=== PATIENT | female | born 1940 | race Caucasian/White ===

== ENCOUNTER 2016-06-28 06:10 | Day surgery (SDC) | payer MEDICARE, OTHER ==
[~2016-06-28] VITALS: Ht 152.4 cm; Wt 73.5 kg
[~2016-06-28 06:10] MED LIST: ALEN70TA5 PO; AMLO5TAB2 PO; ASPI-515 PO; ATOR40TA78 PO; CHOL4POW3 PO; CLOP75TA PO; ESCI20TA PO; HYDR12.53 PO; IBAN150T PO; ISOS30TA8 PO; L-THYROXINE PO; LEVO100T5 PO; LISI-167 PO; MAGN400T7 PO; METO25TA35 PO; NITR0.4T8 SL; NITR1PAT26 TD; NITROGLYCERIN PO; OXYB10TA PO; OXYB5TAB7 PO; PANT40TA3 PO; PARO20TA4 PO; PRAV40TA2 PO; QUIN20TA7 PO; RANO500T2 PO; SUCR1TAB26 PO; TICA90TA PO; TIOT18CA INH; UMEC62.5 INH; VANC1VIA3 PO; VERA240C2 PO
[2016-06-28 07:05] VITALS: BP 117/55
[2016-06-28] MEDS ORDERED: PANT40TA3 PO (07:11)
[2016-06-28] MEDS ORDERED: ASPI-496 PO (07:11)
[2016-06-28] MEDS ORDERED: LIDOCAINE 2%, 20ML ONE (07:22)
[2016-06-28] MEDS ORDERED: PROTAMINE SULFATE 10 MG/ML, 25ML ONE (07:29)
[2016-06-28] MEDS ORDERED: HEPARIN 1,000 UNITS/ML, 10ML ONE (07:30)
[2016-06-28] MEDS ORDERED: MIDAZOLAM 1 MG/ML, 5ML ONE (07:30)
[2016-06-28] MEDS ORDERED: NITROGLYCERIN 5 MG/ML, 10ML ONE (07:30)
[2016-06-28] MEDS ORDERED: FENTANYL PF 100 MCG/2ML ONE (07:30)
[2016-06-28] MEDS ORDERED: FLUMAZENIL 0.1 MG/1 ML, 5ML ONE (07:30)
[2016-06-28] MEDS ORDERED: NALOXONE 1 MG/ML, 2ML ONE (07:30)
[2016-06-28] MEDS ORDERED: VISIPAQUE 320 MG/ML, 150ML BOTTLE ONE (08:00)
[2016-06-28] MEDS ORDERED: CLOPIDOGREL 300 MG TABLET PO ONE (09:30)
[2016-06-28] MEDS ORDERED: CLOPIDOGREL 75 MG TABLET ONE (09:33)
== END 2016-06-28 11:20 | disposition home or self-care (01) ==
LOC: OUT 06:10
PROVIDERS: ATTEND Surgery Vascular Surgery
DX: I70.211 Atherosclerosis of native arteries of extremities with intermittent claudication, right leg (principal); I10 Essential (primary) hypertension; I25.2 Old myocardial infarction; Z87.891 Personal history of nicotine dependence; Z95.5 Presence of coronary angioplasty implant and graft
CPT/HCPCS: 37225; 75625; 75716; C1714; C1725; C1751; C1760; C1769; C1884; C1894; C2623; J1644; J2250; J3010; J3490; Q9967; 75630; 99156; 99157; J2720; J2310

== ENCOUNTER → 2016-08-07 | Outpatient (CLI) | payer MEDICARE, OTHER ==
[~2016-08-07] MED LIST changes: +ASPI-496 PO
== END | disposition home or self-care (01) ==
LOC: CVU 12:12
PROVIDERS: ATTEND Internal Medicine Cardiovascular Disease
DX: I65.29 Occlusion and stenosis of unspecified carotid artery (principal)
CPT/HCPCS: 93880

== ENCOUNTER → 2018-06-26 | Outpatient (CLI) | payer MEDICARE, OTHER ==
[~2018-06-26] MED LIST changes: -ALEN70TA5 PO; +ALEN70TA6 PO; +AMLO-150 PO; -AMLO5TAB2 PO; +HYDR12.517 PO; -HYDR12.53 PO; -IBAN150T PO; +IBAN150T15 PO; +NITR0.4T28 SL; -NITR0.4T8 SL; +QUIN20TA17 PO; -QUIN20TA7 PO; -SUCR1TAB26 PO; +SUCR1TAB33 PO
== END | disposition home or self-care (01) ==
LOC: CVU 08:48
PROVIDERS: ATTEND Surgery Vascular Surgery
DX: I70.90 Unspecified atherosclerosis (principal); J44.9 Chronic obstructive pulmonary disease, unspecified; I25.10 Atherosclerotic heart disease of native coronary artery without angina pectoris
CPT/HCPCS: 93922; 93925

== ENCOUNTER 2018-09-02 21:26 | Inpatient (IN) | payer MEDICARE, OTHER ==
[~2018-09-02] VITALS: Ht 152.4 cm; Wt 72.9 kg
--- NOTE | 2018-09-02 21:43 | NUR ---
PT TO ED FOR MGLF APPROX 1 HOUR AGO. PT REPORTS PAIN TO LEFT SHOULDER AND LEFT HIP. HEMATOMA TO LEFT LOWER LIP. PT CONNECTED TO MONITORS. VSS. EDMD PRESENT FOR ASSESSMENT. AWAITING ORDERS.
[2018-09-02] MEDS ORDERED: ONDANSETRON 2MG/ML, 2ML IVPush ONE (22:00)
[2018-09-02] MEDS ORDERED: MORPHINE SULFATE 4 MG/ML, 1ML ONE ×2 (22:01→23:06)
[2018-09-02] MEDS ORDERED: ONDANSETRON 2MG/ML, 2ML ONE (22:01)
[2018-09-02 22:18] LABS: BASOPHILS # (AUTO) 0.04 x10^3/uL (0-0.1); BASOPHILS % (AUTO) 0 % (0-1); EOSINOPHILS # (AUTO) 0.21 x10^3/uL (0-0.4); EOSINOPHILS % (AUTO) 2 % (1-7); LYMPHOCYTES # (AUTO) 3.57 x10^3/uL (1-3.4); LYMPHOCYTES % (AUTO) 37 % (22-44); MD NO; MEAN CORPUSCULAR HEMOGLOBIN 34.3 pg (27.0-34.8); MEAN PLATELET VOLUME 7.5 fL (7.4-10.4); MONOCYTES # (AUTO) 0.66 x10^3/uL (0.2-0.8); MONOCYTES % (AUTO) 7 % (2-9); NEUTROPHILS # (AUTO) 5.24 x10^3/uL (1.8-6.8); NEUTROPHILS % (AUTO) 54 % (42-75); PLATELET COUNT 255 x10^3/uL (130-400); RED BLOOD COUNT 3.66 x10^6/uL (3.82-5.3); RED CELL DISTRIBUTION WIDTH 13.5 % (9.6-15.2)
[2018-09-02 22:21] LABS: INTERNATIONAL NORMALIZED RATIO 1.02 (0.93-1.1); PROTHROMBIN TIME 10.7 Seconds (9.6-11.5)
[2018-09-02 22:25] LABS: ALANINE AMINOTRANSFERASE 29 U/L (12-78); ALBUMIN 3.6 g/dL (3.4-5.0); ANION GAP 9 mmol/L (5-15); CALCIUM 8.8 mg/dL (8.5-10.1); CHLORIDE 112 mmol/L (98-107); CREATININE 1.06 mg/dL (0.55-1.02)
[2018-09-02 22:29] LABS: ALKALINE PHOSPHATASE 95 U/L (45-117); BILIRUBIN,TOTAL 0.4 mg/dL (0.2-1.0); TOTAL PROTEIN 7.9 g/dL (6.4-8.2); TROPONIN I < 0.015 ng/mL (0.000-0.045)
--- NOTE | 2018-09-02 22:31 | NUR ---
PT GIVEN A DOSE OF MORPHINE TO HELP WITH PAIN. PT IS REPORTING NO IMRPOVEMENT AT THIS TIME. PT RESTING IN BED. AWAITNG FURTHER ORDERS.
[2018-09-02] MEDS: MORPHINE SULFATE 4 MG/ML, 1ML IVPush PRN ×2 (22:36→23:12)
[2018-09-02] MEDS ORDERED: HYDROmorphone 2 MG/ML, 1ML ONE (23:52)
--- NOTE | 2018-09-02 23:58 | NUR ---
RECEIVED REPORT FROM EDNA HENLEY TO ASSUME PT. CARE.
[2018-09-03] MEDS ORDERED: HYDROmorphone 2 MG/ML, 1ML IVPush PRN
[2018-09-03] MEDS ORDERED: HYDROmorphone 1 MG/ML, 1ML INJ IVPush PRN
--- NOTE | 2018-09-03 00:04 | NUR ---
PT MEDICATED FOR PAIN. REPORT TO COLTEN BISHOP. PT ON O2 TO PREVENT HYPOXIA
--- NOTE | 2018-09-03 00:24 | NUR ---
REPORT TO EDNA AVELAR. FLOOR READY FOR PT. TRANSPORT. EDTA AT BS TO PLACE SHOULDER IMMOBILIZER PER ORDER.
[2018-09-03] MEDS ORDERED: L-Thyroxine PO (01:13)
[2018-09-03] MEDS ORDERED: NITR0.6T4 SL (01:13)
[2018-09-03] MEDS ORDERED: METO25TA4 PO (01:13)
[2018-09-03 01:14] VITALS: BP 152/67
[2018-09-03] MEDS ORDERED: MELATONIN 5 MG TABLET ONE (01:50)
[2018-09-03] MEDS ORDERED: MELATONIN 5 MG TABLET PO PRN (02:00)
[2018-09-03] MEDS ORDERED: hydrALAzine 20 MG/ML, 1ML IVPush PRN (04:00)
[2018-09-03] MEDS ORDERED: PROMETHAZINE 25 MG/ML, 1ML IM PRN (04:00)
[2018-09-03] MEDS ORDERED: POLYETHYLENE GLYCOL 17 GM PACKET PO PRN (04:00)
[2018-09-03] MEDS ORDERED: DOCUSATE 100 MG CAPSULE PO PRN (04:00)
[2018-09-03] MEDS ORDERED: ONDANSETRON ODT 4 MG PO PRN (04:00)
[2018-09-03] MEDS ORDERED: NITROGLYCERIN 0.4 MG BOTTLE (25 TABS) SL PRN (04:00)
[2018-09-03] MEDS ORDERED: HYDROcodone/APAP 5/325 TABLET PO PRN (04:00)
[2018-09-03] MEDS ORDERED: ONDANSETRON 2MG/ML, 2ML IVPush PRN (04:00)
[2018-09-03] MEDS ORDERED: ACETAMINOPHEN 325 MG TABLET PO PRN (04:00)
[2018-09-03] MEDS ORDERED: BISACODYL 10 MG SUPP PR PRN (04:00)
[2018-09-03] MEDS: morphine SULFATE 10 MG/ML, 1ML IVPush PRN ×2 (04:11→08:19)
[2018-09-03 04:51] LABS: MICROSCOPIC AUTO
[2018-09-03 04:52] LABS: CULTURE INDICATED? YES
[2018-09-03 05:50] LABS: ALBUMIN 3.3 g/dL (3.4-5.0); ANION GAP 9 mmol/L (5-15); BASOPHILS # (AUTO) 0.03 x10^3/uL (0-0.1); BASOPHILS % (AUTO) 0 % (0-1); CALCIUM 8.6 mg/dL (8.5-10.1); CHLORIDE 114 mmol/L (98-107); EOSINOPHILS # (AUTO) 0.01 x10^3/uL (0-0.4); EOSINOPHILS % (AUTO) 0 % (1-7); LYMPHOCYTES % (AUTO) 13 % (22-44); MD NO; MEAN CORPUSCULAR HEMOGLOBIN 34.6 pg (27.0-34.8); MEAN CORPUSCULAR HGB CONC 34.3 g/dL (32.4-35.8); MEAN PLATELET VOLUME 7.7 fL (7.4-10.4); MONOCYTES # (AUTO) 0.52 x10^3/uL (0.2-0.8); MONOCYTES % (AUTO) 5 % (2-9); NEUTROPHILS # (AUTO) 8.71 x10^3/uL (1.8-6.8); NEUTROPHILS % (AUTO) 82 % (42-75); PLATELET COUNT 233 x10^3/uL (130-400); RED BLOOD COUNT 3.38 x10^6/uL (3.82-5.3); RED CELL DISTRIBUTION WIDTH 13.5 % (9.6-15.2)
[2018-09-03 05:59] LABS: ALANINE AMINOTRANSFERASE 26 U/L (12-78); ALKALINE PHOSPHATASE 86 U/L (45-117); BILIRUBIN,TOTAL 0.4 mg/dL (0.2-1.0); CHOL/HDL RATIO 2.1; CHOLESTEROL, TOTAL 141 mg/dL (140-239); FREE T4 (FREE THYROXINE) 1.06 ng/dL (0.76-1.46); HDL CHOL % 47 % (28-40); HDL CHOLESTEROL (DIRECT) 66 mg/dL (40-60); LDL CHOLESTEROL,CALCULATED 48 mg/dL (54-169); LDL/HDL RATIO 0.7 (0.5-3.0); TOTAL PROTEIN 7.3 g/dL (6.4-8.2); TRIGLYCERIDES 134 mg/dL (50-200); VLDL CHOLESTEROL 27 mg/dL (0-25)
[2018-09-03] MEDS ORDERED: IPRATROPIUM 0.5 MG/2.5 ML INHA NPPB SCH (06:00)
[2018-09-03] MEDS: SODIUM CHLORIDE 0.9% 1,000 ML IV SCH ×2 (06:21→15:19)
[2018-09-03 06:29] LABS: HEMOGLOBIN A1C 5.1 % (4.2-6.3)
[2018-09-03] MEDS ORDERED: ALENDRONATE 70 MG TABLET PO SCH (06:30)
[2018-09-03 07:41] VITALS: BP 138/69
[2018-09-03] MEDS: PANTOPROZOLE 40MG TABLET PO SCH ×2 (08:19→20:05)
[2018-09-03] MEDS: LISINOPRIL 10 MG TABLET PO SCH (08:19)
[2018-09-03] MEDS: LEVOTHYROXINE 125 MCG TABLET PO SCH (08:19)
[2018-09-03] MEDS: METOPROLOL TARTRATE 25 MG TABLET PO SCH ×2 (08:19→20:05)
[2018-09-03] MEDS: TEMPLATE NON-FORMULARY MED. (Escitalopram Oxalate** 20 MG) HOMEMEDPO SCH (08:20)
[2018-09-03] MEDS: CHOLESTYRAMINE LIGHT 4GM PACKET PO SCH ×3 (08:20→20:05)
[2018-09-03] MEDS: IPRATROPIUM 0.5 MG/2.5 ML INHA NPPB SCH (09:32)
[2018-09-03] MEDS: HYDROmorphone 2 MG/ML, 1ML IVPush PRN ×4 (09:50→21:06)
[2018-09-03] MEDS: LIDODERM 5% PATCH TD SCH (09:50)
[2018-09-03] MEDS ORDERED: LORazepam 2 MG/ML, 1ML IVPush PRN (11:00)
[2018-09-03] MEDS: CEFTRIAXONE PMX 1GM/50ML 50 ML IV SCH (12:20)
[2018-09-03 13:53] VITALS: BP 148/76
[2018-09-03 19:09] VITALS: BP 135/68
[2018-09-03] MEDS ORDERED: AMLODIPINE 5 MG TABLET PO SCH (21:00)
[2018-09-03] MEDS ORDERED: ISOSORBIDE MONONITRATE ER 30 MG TABLET PO SCH (21:00)
[2018-09-03] MEDS ORDERED: ATORVASTATIN 40 MG TABLET PO SCH (21:00)
[2018-09-04] MEDS: SODIUM CHLORIDE 0.9% 1,000 ML IV SCH (00:57)
[2018-09-04] MEDS: HYDROmorphone 2 MG/ML, 1ML IVPush PRN ×3 (00:58→08:48)
[2018-09-04 02:04] VITALS: BP 146/77
[2018-09-04 07:29] VITALS: BP 133/61
[2018-09-04] MEDS: LEVOTHYROXINE 125 MCG TABLET PO SCH (08:48)
[2018-09-04] MEDS: PANTOPROZOLE 40MG TABLET PO SCH ×2 (08:50→09:55)
[2018-09-04] MEDS: METOPROLOL TARTRATE 25 MG TABLET PO SCH ×2 (08:51→09:55)
[2018-09-04] MEDS: LISINOPRIL 10 MG TABLET PO SCH ×2 (08:51→09:55)
[2018-09-04] MEDS: TEMPLATE NON-FORMULARY MED. (Escitalopram Oxalate** 20 MG) HOMEMEDPO SCH (09:00)
[2018-09-04] MEDS: LIDODERM 5% PATCH TD SCH (09:30)
[2018-09-04] MEDS ORDERED: OxyconTIN ER 15 MG TAB.ER PO SCH (09:35)
[2018-09-04] MEDS ORDERED: KETOROLAC 30 MG/1 ML IVPush ONE (09:35)
[2018-09-04 09:45] VITALS: BP 146/78
[2018-09-04] MEDS ORDERED: OXYcodone IR 30 MG TABLET PO PRN (10:00)
[2018-09-04] MEDS: IPRATROPIUM 0.5 MG/2.5 ML INHA NPPB SCH (10:03)
[2018-09-04] MEDS ORDERED: LIDO700A20 TD (10:23)
[2018-09-04] MEDS ORDERED: POLY17PO5 PO (10:23)
[2018-09-04] MEDS ORDERED: OXYC30TA PO (10:23)
[2018-09-04] MEDS ORDERED: MELA5TAB19 PO (10:23)
[2018-09-04] MEDS ORDERED: OXYC15TA60 PO (10:23)
[2018-09-04] MEDS: CHOLESTYRAMINE LIGHT 4GM PACKET PO SCH (11:11)
[2018-09-04] MEDS: CEFTRIAXONE PMX 1GM/50ML 50 ML IV SCH (11:54)
[2018-09-04] MEDS ORDERED: OXYcodone IR 5MG TABLET ONE (13:06)
== END 2018-09-04 15:30 | disposition home health service (06) | DRG 542 ==
LOC: ED 23:29 → EDIP 23:52 → 4WST 09-03 00:39
PROVIDERS: ADMIT Internal Medicine; ATTEND Internal Medicine
DX: M80.022A Age-related osteoporosis with current pathological fracture, left humerus, initial encounter for fracture (principal); N17.0 Acute kidney failure with tubular necrosis; E87.2 Acidosis; F10.120 Alcohol abuse with intoxication, uncomplicated; E03.9 Hypothyroidism, unspecified; E78.5 Hyperlipidemia, unspecified; F32.9 Major depressive disorder, single episode, unspecified; I12.9 Hypertensive chronic kidney disease with stage 1 through stage 4 chronic kidney disease, or unspecified chronic kidney disease; I25.10 Atherosclerotic heart disease of native coronary artery without angina pectoris; I73.9 Peripheral vascular disease, unspecified; J44.9 Chronic obstructive pulmonary disease, unspecified; N18.3 Chronic kidney disease, stage 3 (moderate); W01.0XXA Fall on same level from slipping, tripping and stumbling without subsequent striking against object, initial encounter; S09.90XA Unspecified injury of head, initial encounter; Y93.89 Activity, other specified; Y92.89 Other specified places as the place of occurrence of the external cause; Y99.8 Other external cause status; I25.2 Old myocardial infarction; Z80.3 Family history of malignant neoplasm of breast; Z87.11 Personal history of peptic ulcer disease; Z87.891 Personal history of nicotine dependence; Z90.710 Acquired absence of both cervix and uterus; Z95.5 Presence of coronary angioplasty implant and graft; Z90.49 Acquired absence of other specified parts of digestive tract
CPT/HCPCS: 36415; 70450; 70486; 71045; 72125; 72170; 80053; 80061; 80307; 81001; 83036; 83735; 84439; 84443; 84484; 85025; 85610; 87086; 93005; 94640; 96374; G0378; J0696; J1170; J1885; J2405; J7644; J2270; J7030

== ENCOUNTER 2019-06-27 14:03 | Observation (INO) | payer MEDICARE ==
[~2019-06-27] VITALS: Ht 149.9 cm; Wt 68.3 kg
[~2019-06-27 14:03] MED LIST changes: +L-Thyroxine PO; +LIDO700A20 TD; -MAGN400T7 PO; +MAGN400T9 PO; +MELA5TAB14 PO; +METO25TA4 PO; +NITR0.6T4 SL; -OXYB10TA PO; +OXYB10TA26 PO; +OXYB5TAB10 PO; -OXYB5TAB7 PO; +OXYC15TA60 PO; +OXYC30TA PO; +POLY17PO5 PO
--- NOTE | 2019-06-27 14:15 | NUR ---
PT BIB [facility], PT WITH C/O SOB AND EXP WHEEZING X3 DAYS. PT CHECKED HER O2 SAT AT HOME AND PER FAMILY REPORT SHE WAS SATING AT 74%, PT WAS PLACED ON 5L NC OF HER HOME O2 THAT SHE WEARS AT NIGHT. EMS CALLED. PT ON ARRIVAL WITH AUDIBLE EXP WHEEZING. PT SATING 94% WITH 6L. ERMD IN TO EVAL PT. ORDERS RECIEVED. PT TO CARD MONITOR, CONT PULSE OX, BP
[2019-06-27] MEDS ORDERED: SODIUM CHLORIDE FLUSH 10ML SYR IVF ONE (14:30)
[2019-06-27] MEDS ORDERED: ALBUTEROL SULFATE 2.5 MG/3 ML NPPB ONE (14:30)
[2019-06-27] MEDS ORDERED: methylPREDNISolone SOD SUCC 125 MG/2 ML IV ONE (14:30)
[2019-06-27 14:39] LABS: BASOPHILS # (AUTO) 0.02 x10^3/uL (0-0.1); BASOPHILS % (AUTO) 0 % (0-1); EOSINOPHILS # (AUTO) 0.48 x10^3/uL (0-0.4); EOSINOPHILS % (AUTO) 6 % (1-7); LYMPHOCYTES # (AUTO) 2.36 x10^3/uL (1-3.4); LYMPHOCYTES % (AUTO) 30 % (22-44); MD NO; MEAN CORPUSCULAR HEMOGLOBIN 33.7 pg (27.0-34.8); MEAN CORPUSCULAR HGB CONC 32.9 g/dL (32.4-35.8); MEAN CORPUSCULAR VOLUME 102.6 fL (80-100); MEAN PLATELET VOLUME 7.3 fL (7.4-10.4); MONOCYTES # (AUTO) 0.61 x10^3/uL (0.2-0.8); MONOCYTES % (AUTO) 8 % (2-9); NEUTROPHILS # (AUTO) 4.48 x10^3/uL (1.8-6.8); NEUTROPHILS % (AUTO) 56 % (42-75); PLATELET COUNT 192 x10^3/uL (130-400); RED BLOOD COUNT 3.09 x10^6/uL (3.82-5.3)
[2019-06-27] MEDS ORDERED: ALBUTEROL/IPRATROPIUM 2.5MG/0.5MG, 3 ML ONE (14:39)
[2019-06-27 14:49] LABS: ALBUMIN 2.7 g/dL (3.4-5.0); ANION GAP 6 mmol/L (5-15); CALCIUM 8.2 mg/dL (8.5-10.1); CHLORIDE 107 mmol/L (98-107); CREATININE 0.89 mg/dL (0.55-1.02)
--- NOTE | 2019-06-27 15:32 | NUR ---
PT STATES IMPROVEMENT IN SOB S/P TREATMENT AND MEDICATION ADMIN. PT ASSISTED TO BR WITH STEADY GAIT. PT BACK TO RM SATING 97% ON 6L NC
[2019-06-27] MEDS: ENOXAPARIN 40 MG/0.4 ML SQ SCH (16:30)
[2019-06-27] MEDS ORDERED: SODIUM CHLORIDE FLUSH 10ML SYR IVF PRN (16:30)
[2019-06-27] MEDS ORDERED: FUROSEMIDE 20 MG/2 ML IV ONE (16:30)
[2019-06-27] MEDS ORDERED: ONDANSETRON 2MG/ML, 2ML IVPush PRN (16:30)
[2019-06-27] MEDS ORDERED: DOCUSATE 100 MG CAPSULE PO PRN (16:30)
--- NOTE | 2019-06-27 17:20 | NUR ---
Brooks hughes in [facility], [place] - 06/27/19 at 1721 by TIGRE AWAITING ON BED PLACEMENT, PT PROVIDED WITH MEAL TRAY
--- NOTE | 2019-06-27 17:21 | NUR ---
PT AWAITING BED PLACEMENT, PROVIDED MEAL TRAY FOR PT.
[2019-06-27] MEDS ORDERED: ACETAMINOPHEN 325 MG TABLET ONE (17:35)
[2019-06-27] MEDS: ACETAMINOPHEN 325 MG TABLET PO PRN (17:36)
[2019-06-27 18:43] VITALS: BP 173/71
[2019-06-27 20:32] VITALS: BP 162/79
[2019-06-27] MEDS: methylPREDNISolone SOD SUCC 40 MG/ML IV SCH (21:15)
[2019-06-27] MEDS: METOPROLOL TARTRATE 25 MG TAB PO SCH (21:17)
[2019-06-27] MEDS: ATORVASTATIN 40 MG TABLET PO SCH (21:17)
[2019-06-27] MEDS: OXYcodone/APAP 5/325MG TABLET PO PRN (21:17)
[2019-06-27] MEDS: AMLODIPINE 5 MG TABLET PO SCH (21:17)
[2019-06-27] MEDS: ISOSORBIDE MONONITRATE ER 30 MG TABLET PO SCH (21:17)
[2019-06-27] MEDS: MELATONIN 5 MG TABLET PO PRN (21:20)
[2019-06-28 01:23] VITALS: BP 137/74
[2019-06-28] MEDS: LEVOTHYROXINE 125 MCG TABLET PO SCH (06:15)
[2019-06-28 06:25] LABS: ANION GAP 6 mmol/L (5-15); CALCIUM 8.4 mg/dL (8.5-10.1); CHLORIDE 110 mmol/L (98-107); CREATININE 0.96 mg/dL (0.55-1.02)
[2019-06-28 06:26] LABS: BASOPHILS # (AUTO) 0.01 x10^3/uL (0-0.1); BASOPHILS % (AUTO) 0 % (0-1); EOSINOPHILS % (AUTO) 0 % (1-7); LYMPHOCYTES # (AUTO) 0.92 x10^3/uL (1-3.4); LYMPHOCYTES % (AUTO) 22 % (22-44); MD NO; MEAN CORPUSCULAR HEMOGLOBIN 34.4 pg (27.0-34.8); MEAN CORPUSCULAR HGB CONC 33.8 g/dL (32.4-35.8); MEAN CORPUSCULAR VOLUME 101.7 fL (80-100); MEAN PLATELET VOLUME 7.5 fL (7.4-10.4); MONOCYTES # (AUTO) 0.13 x10^3/uL (0.2-0.8); MONOCYTES % (AUTO) 3 % (2-9); NEUTROPHILS # (AUTO) 3.15 x10^3/uL (1.8-6.8); NEUTROPHILS % (AUTO) 75 % (42-75); PLATELET COUNT 209 x10^3/uL (130-400); RED BLOOD COUNT 2.88 x10^6/uL (3.82-5.3); RED CELL DISTRIBUTION WIDTH 14.1 % (9.6-15.2)
[2019-06-28 07:06] VITALS: BP 144/62
[2019-06-28] MEDS: FUROSEMIDE 40 MG/4 ML IV SCH (08:58)
[2019-06-28] MEDS: CLOPIDOGREL 75 MG TABLET PO SCH (08:59)
[2019-06-28] MEDS: METOPROLOL TARTRATE 25 MG TAB PO SCH ×3 (08:59→20:44)
[2019-06-28] MEDS: methylPREDNISolone SOD SUCC 40 MG/ML IV SCH ×2 (08:59→20:41)
[2019-06-28] MEDS: LISINOPRIL 10 MG TABLET PO SCH (08:59)
[2019-06-28] MEDS: ESCITALOPRAM 10MG TABLET PO SCH (08:59)
[2019-06-28] MEDS ORDERED: AZITHROMYCIN 500 MG TABLET PO ONE (12:00)
[2019-06-28 12:19] VITALS: BP 168/79
[2019-06-28] MEDS: OXYcodone/APAP 5/325MG TABLET PO PRN ×2 (15:33→22:48)
[2019-06-28] MEDS: ENOXAPARIN 40 MG/0.4 ML SQ SCH (15:33)
[2019-06-28 19:52] VITALS: BP 161/74
[2019-06-28] MEDS: BUDESONIDE 0.5 MG/2 ML INHA NPPB SCH (20:02)
[2019-06-28] MEDS: ALBUTEROL SULFATE 2.5 MG/3 ML NPPB SCH (20:02)
[2019-06-28] MEDS: ATORVASTATIN 40 MG TABLET PO SCH (20:41)
[2019-06-28] MEDS: MELATONIN 5 MG TABLET PO PRN (20:41)
[2019-06-28] MEDS: ISOSORBIDE MONONITRATE ER 30 MG TABLET PO SCH (20:44)
[2019-06-28] MEDS: AMLODIPINE 5 MG TABLET PO SCH (20:44)
[2019-06-29] VITALS: BP 156/68
[2019-06-29] MEDS: ALBUTEROL SULFATE 2.5 MG/3 ML NPPB SCH ×4 (02:01→21:04)
[2019-06-29] MEDS: ACETAMINOPHEN 325 MG TABLET PO PRN (02:22)
[2019-06-29 04:55] LABS: ANION GAP 9 mmol/L (5-15); CALCIUM 8.3 mg/dL (8.5-10.1); CHLORIDE 105 mmol/L (98-107)
[2019-06-29 04:56] LABS: CREATININE 0.91 mg/dL (0.55-1.02)
[2019-06-29] MEDS: LEVOTHYROXINE 125 MCG TABLET PO SCH (05:38)
[2019-06-29] MEDS: OXYcodone/APAP 5/325MG TABLET PO PRN ×3 (05:39→20:47)
[2019-06-29 06:50] VITALS: BP 147/69
[2019-06-29 07:46] LABS: MEAN CORPUSCULAR HEMOGLOBIN 34.5 pg (27.0-34.8); MEAN CORPUSCULAR HGB CONC 33.6 g/dL (32.4-35.8); MEAN CORPUSCULAR VOLUME 102.6 fL (80-100); MEAN PLATELET VOLUME 6.7 fL (7.4-10.4); PLATELET COUNT 282 x10^3/uL (130-400); RED BLOOD COUNT 3.12 x10^6/uL (3.82-5.3); RED CELL DISTRIBUTION WIDTH 13.8 % (9.6-15.2)
[2019-06-29] MEDS: BUDESONIDE 0.5 MG/2 ML INHA NPPB SCH ×2 (07:49→21:04)
[2019-06-29 08:14] LABS: BASOPHILS # (AUTO) 0.01 x10^3/uL (0-0.1); BASOPHILS % (AUTO) 0 % (0-1); EOSINOPHILS % (AUTO) 0 % (1-7); LYMPHOCYTES # (AUTO) 1.32 x10^3/uL (1-3.4); LYMPHOCYTES % (AUTO) 12 % (22-44); MD SCAN; MONOCYTES # (AUTO) 0.42 x10^3/uL (0.2-0.8); MONOCYTES % (AUTO) 4 % (2-9); NEUTROPHILS # (AUTO) 9.46 x10^3/uL (1.8-6.8); NEUTROPHILS % (AUTO) 84 % (42-75)
[2019-06-29] MEDS: methylPREDNISolone SOD SUCC 40 MG/ML IV SCH ×2 (08:17→10:20)
[2019-06-29] MEDS: FUROSEMIDE 40 MG/4 ML IV SCH (08:17)
[2019-06-29] MEDS: LISINOPRIL 10 MG TABLET PO SCH (08:17)
[2019-06-29] MEDS: METOPROLOL TARTRATE 25 MG TAB PO SCH ×2 (08:17→20:46)
[2019-06-29] MEDS: AZITHROMYCIN 250 MG TABLET PO SCH (08:18)
[2019-06-29] MEDS: CLOPIDOGREL 75 MG TABLET PO SCH (08:18)
[2019-06-29] MEDS: ESCITALOPRAM 10MG TABLET PO SCH (08:18)
[2019-06-29] MEDS ORDERED: POTASSIUM CHLORIDE 20 MEQ TAB.ER.PRT PO ONE (10:00)
[2019-06-29 12:22] VITALS: BP 156/75
[2019-06-29] MEDS: ENOXAPARIN 40 MG/0.4 ML SQ SCH (16:52)
[2019-06-29 19:37] VITALS: BP 158/64
[2019-06-29] MEDS: ATORVASTATIN 40 MG TABLET PO SCH (20:46)
[2019-06-29] MEDS: AMLODIPINE 5 MG TABLET PO SCH (20:46)
[2019-06-29] MEDS: ISOSORBIDE MONONITRATE ER 30 MG TABLET PO SCH (20:46)
[2019-06-29] MEDS: MELATONIN 5 MG TABLET PO PRN (20:47)
[2019-06-30] VITALS: BP 151/58
[2019-06-30] MEDS: ALBUTEROL SULFATE 2.5 MG/3 ML NPPB SCH ×2 (03:00→08:30)
[2019-06-30 04:15] VITALS: BP 143/60
[2019-06-30] MEDS: LEVOTHYROXINE 125 MCG TABLET PO SCH (05:47)
[2019-06-30 06:03] LABS: BASOPHILS # (AUTO) 0.02 x10^3/uL (0-0.1); BASOPHILS % (AUTO) 0 % (0-1); EOSINOPHILS # (AUTO) 0.14 x10^3/uL (0-0.4); EOSINOPHILS % (AUTO) 1 % (1-7); LYMPHOCYTES # (AUTO) 2.25 x10^3/uL (1-3.4); LYMPHOCYTES % (AUTO) 22 % (22-44); MD NO; MEAN CORPUSCULAR HEMOGLOBIN 33.8 pg (27.0-34.8); MEAN CORPUSCULAR VOLUME 102.3 fL (80-100); MEAN PLATELET VOLUME 7.3 fL (7.4-10.4); MONOCYTES # (AUTO) 0.77 x10^3/uL (0.2-0.8); MONOCYTES % (AUTO) 7 % (2-9); NEUTROPHILS # (AUTO) 7.31 x10^3/uL (1.8-6.8); NEUTROPHILS % (AUTO) 70 % (42-75); PLATELET COUNT 286 x10^3/uL (130-400); RED BLOOD COUNT 3.16 x10^6/uL (3.82-5.3); RED CELL DISTRIBUTION WIDTH 13.6 % (9.6-15.2)
[2019-06-30 06:11] LABS: ANION GAP 7 mmol/L (5-15); CALCIUM 8.4 mg/dL (8.5-10.1); CHLORIDE 103 mmol/L (98-107)
[2019-06-30 06:12] LABS: CREATININE 1.11 mg/dL (0.55-1.02)
[2019-06-30 06:31] VITALS: BP 173/74
[2019-06-30] MEDS: BUDESONIDE 0.5 MG/2 ML INHA NPPB SCH (08:30)
[2019-06-30] MEDS: methylPREDNISolone SOD SUCC 40 MG/ML IV SCH (08:50)
[2019-06-30] MEDS: LISINOPRIL 10 MG TABLET PO SCH (08:50)
[2019-06-30] MEDS: AZITHROMYCIN 250 MG TABLET PO SCH (08:50)
[2019-06-30] MEDS: CLOPIDOGREL 75 MG TABLET PO SCH (08:50)
[2019-06-30] MEDS: METOPROLOL TARTRATE 25 MG TAB PO SCH (08:50)
[2019-06-30] MEDS: ESCITALOPRAM 10MG TABLET PO SCH (08:50)
[2019-06-30 12:22] VITALS: BP 167/86
[2019-06-30] MEDS ORDERED: ALBU18HF INH (12:59)
[2019-06-30] MEDS ORDERED: AZIT250T89 PO (12:59)
[2019-06-30] MEDS ORDERED: PRED10TA PO (15:42)
[2019-06-30] MEDS ORDERED: ENOXAPARIN 30 MG/0.3 ML SQ SCH (16:30)
== END 2019-06-30 15:36 | disposition home or self-care (01) ==
LOC: ED 16:15 → EDIP 16:20 → INTOOBSV 16:20 → ED 16:31 → 4EST 18:10
PROVIDERS: ADMIT Internal Medicine Infectious Disease; ATTEND Internal Medicine
DX: J96.20 Acute and chronic respiratory failure, unspecified whether with hypoxia or hypercapnia (principal); J44.1 Chronic obstructive pulmonary disease with (acute) exacerbation; I13.0 Hypertensive heart and chronic kidney disease with heart failure and stage 1 through stage 4 chronic kidney disease, or unspecified chronic kidney disease; N18.3 Chronic kidney disease, stage 3 (moderate); I50.9 Heart failure, unspecified; J98.01 Acute bronchospasm; I25.10 Atherosclerotic heart disease of native coronary artery without angina pectoris; Z95.5 Presence of coronary angioplasty implant and graft; I73.9 Peripheral vascular disease, unspecified; E03.9 Hypothyroidism, unspecified; Z90.710 Acquired absence of both cervix and uterus; I25.2 Old myocardial infarction; Z87.891 Personal history of nicotine dependence
CPT/HCPCS: 36415; 36600; 71045; 80048; 82040; 82803; 83735; 83880; 84100; 84145; 85025; 93005; 93306; 94640; 96372; 96374; 96375; 96376; 97162; 99285; G0378; J1650; J1940; J2920; J2930; J7613; J7626

== ENCOUNTER → 2020-10-13 | Outpatient (CLI) | payer MEDICARE ==
[~2020-10-13] MED LIST changes: +ALBU18HF INH; -ALEN70TA6 PO; +ALEN70TA77 PO; -ASPI-515 PO; +ASPI-963 PO; +AZIT250T89 PO; -ESCI20TA PO; +ESCI20TA8 PO; -OXYC30TA PO; +OXYC30TA3 PO; +PRED10TA PO; +REGADENOSON 0.4 MG/5 ML SYRINGE ONE; -VANC1VIA3 PO; +VANC1VIA36 PO
== END | disposition home or self-care (01) ==
LOC: CFH 07:42
PROVIDERS: ATTEND Internal Medicine Cardiovascular Disease
DX: I25.89 Other forms of chronic ischemic heart disease (principal); I25.10 Atherosclerotic heart disease of native coronary artery without angina pectoris; I34.0 Nonrheumatic mitral (valve) insufficiency
CPT/HCPCS: 78452; 93017; A9502; J2785